=== PATIENT | female | born 1960 | race Caucasian/White ===

== ENCOUNTER 2019-02-26 18:26 | Emergency (ER) | payer OTHER ==
--- NOTE | 2019-02-26 19:15 | RADIOLOGY REPORT (SQ) ---
EXAM DESCRIPTION: ELBOW RIGHT OVER 2 VIEWS COMPLETED DATE/TIME: 02/26/2019 7:07 pm REASON FOR STUDY: elbow pain s/p fall COMPARISON: None. NUMBER OF VIEWS: Four views. TECHNIQUE: AP, lateral, and both oblique radiographic images acquired of the right elbow. LIMITATIONS: None. FINDINGS: MINERALIZATION: Normal. BONES: Hairline nondisplaced radial head fracture suspected on the external oblique view marked with a klamath JOINT: Elbow joint effusion with elevated anterior fat pad. SOFT TISSUES: No soft tissue swelling. No foreign body. OTHER: No other significant finding. IMPRESSION: Hairline nondisplaced radial head fracture suspected on the external oblique view, marke d with a klamath. TECHNICAL DOCUMENTATION: JOB ID: [id number] [employer]- All Rights Reserved Reading location - IP/workstation name: [email or web address]
[2019-02-26] MEDS ORDERED: HYDROCODONE/ACETAMINOPHEN 5-325 MG (6 TAB/ER DISP) PO PRN (19:37)
--- NOTE | 2019-02-26 19:41 | ER Document Report ---
HPI - HPI Patient complains to provider of: Right elbow injury Time Seen by Provider: 02/26/19 19:30 Onset: This evening Onset/Duration: Sudden Quality of pain: Achy Pain Level: 4 Context: Patient states she was walking tripped and fell landing on her right elbow. Patient states she felt a crack in her elbow. Patient is right-hand dominant. Patient denies any other injuries after the fall. Associated Symptoms: Other - Right elbow injury Exacerbated by: Movement Relieved by: Denies Similar symptoms previously: No Recently seen / treated by doctor: No - ROS ROS below otherwise negative: Yes Systems Reviewed and Negative: Yes All other systems reviewed and negative - NEURO Neurology: DENIES: Headache, Weakness - CARDIOVASCULAR Cardiovascular: DENIES: Chest pain - GASTROINTESTINAL Gastrointestinal: DENIES: Nausea, Patient vomiting - REPRODUCTIVE Reproductive: DENIES: : - MUSCULOSKELETAL Musculoskeletal: REPORTS: Extremity pain - right elbow - DERM Skin Color: Normal Skin Problems: None Past Medical History - General Information source: Patient - Social History Smoking Status: Current Every Day Smoker Smoking Education Provided: Yes Frequency of alcohol use: None Drug Abuse: None Occupation: realtor Lives with: Alone Family History: Reviewed & Not Pertinent Patient has suicidal ideation: No Patient has homicidal ideation: No Pulmonary Medical History: Reports: Hx Bronchitis - hx of Neurological Medical History: Denies: Hx Cerebrovascular Accident, Hx Seizures Endocrine Medical History: Reports: Hx Hypothyroidism Renal/ Medical History: Denies: Hx Peritoneal Dialysis Musculoskeletal Medical History: Denies Hx Arthritis Past Surgical History: Reports: Other - Abscess - Immunizations Hx Diphtheria, Pertussis, Tetanus Vaccination: No Vertical Provider Document - CONSTITUTIONAL Agree With Documented VS: Yes Exam Limitations: No Limitations General Appearance: WD/WN, No Apparent Distress - INFECTION CONTROL TRAVEL OUTSIDE OF THE [place] IN LAST 30 DAYS: No - HEENT HEENT: Atraumatic, Normocephalic - NECK Neck: Normal Inspection - RESPIRATORY Respiratory: No Respiratory Distress - CARDIOVASCULAR Pulses: Normal: Radial - MUSCULOSKELETAL/EXTREMETIES Musculoskeletal/Extremeties: MAEW, Tender - Right elbow tenderness over radial head, no joint effusion. No obvious deformity. Patient with tenderness with range of motion. - NEURO Level of Consciousness: Awake, Alert, Appropriate Motor/Sensory: No Motor Deficit - DERM Integumentary: Warm, Dry, No Rash Course - Re-evaluation Re-evalutation: 02/26/19 Patient's radiology report reviewed. Patient with subtle fracture noted to the radial head of right arm. Good return precautions discussed with patient. Patient encouraged to follow-up with orthopedics for further management. Patient verbalized understanding is agreeable with this plan of care. - Vital Signs Vital signs: Temp Pulse Resp BP Pulse Ox 98.4 F 97 18 96/79 L 100 02/26/19 18:41 02/26/19 18:41 02/26/19 18:41 02/26/19 18:41 02/26/19 18:41 - Diagnostic Test Radiology reviewed: Image reviewed, Reports reviewed Procedures - Immobilization Right Elbow Pre-Proc Neuro Vasc Exam: Normal Immobilizer type: Long arm posterior, Sling Performed by: PCT Post-Proc Neuro Vasc Exam: Normal Alignment checked and good: Yes Discharge - Discharge Clinical Impression: Radial head fracture, closed Qualifiers: Encounter type: initial encounter Fracture alignment: nondisplaced Laterality: right Qualified Code(s): S52.124A - Nondisplaced fracture of head of right radius, initial encounter for closed fracture Condition: Stable Disposition: HOME, SELF-CARE Instructions: Ice & Elevation ([facility]), Radial Head Fracture ([facility]), Splint Precautions ([facility]) Additional Instructions: Return immediately for any new or worsening symptoms Followup with your primary care provider, call tomorrow to make a followup appointment Follow-up with orthopedics for further evaluation, call tomorrow for an appointment. Prescriptions: Naproxen [Naprosyn 250 Nmg Tablet] 1 tab PO BID #14 tablet Forms: Smoking Cessation Education Referrals: BRONSON THAPA FNP-C [Primary Care Provider] - Follow up as needed [facility] [Provider Group] - Follow up tomorrow
[2019-02-26 20:15] VITALS: BP 111/75
== END 2019-02-26 20:23 | disposition home or self-care (01) ==
LOC: ER 18:26
PROC: 2W38X1Z Immobilization of Right Upper Extremity using Splint (ICD-10-PCS; principal; 2019-02-26)
DX: S52.124A Nondisplaced fracture of head of right radius, initial encounter for closed fracture (principal); M25.521 Pain in right elbow; W19.XXXA Unspecified fall, initial encounter; F17.200 Nicotine dependence, unspecified, uncomplicated
CPT/HCPCS: 99283

== ENCOUNTER → 2019-02-26 | Outpatient (CLI) | payer OTHER ==
--- NOTE | 2019-02-27 13:00 | XCELERA REPORT ---
[address] [address] Lower Extremity Arterial Evaluation Name: LUH TORRES Age: 58 yrs Gender: Female : 1960 Patient Status: Outpatient Patient Location: [facility] Study Date: 02/26/2019 02:27 PM Procedure: A color flow and duplex scan of the lower extremity arteries was performed bilaterally with velocity and waveform anaylsis. Ankle brachial indicies performed. Reason For Study: PAIN Ordering Physician: BRONSON THAPA Performed By: Prosper Mcmanus Measurements and Calculations Right Left AGRICULTURAL RESEARCH TECHNICIAN PSV 59.7 55.3 cm/sec Prox PFA PSV -40.7 -29.4 cm/sec Prox SFA PSV 48.8 55.0 cm/sec Mid SFA PSV -48.8 -37.3 cm/sec Dist SFA PSV -27.7 -33.6 cm/sec Prox Pop A PSV 25.3 24.4 cm/sec Dist CUCO PSV 26.7 18.7 cm/sec Dist PAPER MACHINE SUPERVISOR PSV 22.6 22.2 cm/sec Adonay Pedis PSV 20.6 -12.2 cm/sec Right Side Arterial Evaluation Low normal velocity and monophasic waveforms, spectral broadening noted from the Common Femoral artery to the infrageniculate vessels . Ankle Brachial index is 0.67. Left Side Arterial Evaluation Low normal velocity and monophasic waveforms, spectral broadening noted from the Common Femoral artery to the infrageniculate vessels . Ankle Brachial index is 0.73. Interpretation Summary Severe hemodynamically significant lesions in the bilateral lower extremities, on duplex imaging, at rest. Findings are indicative of proximal or inflow compromise. The STACY's indicate moderately severe disease. : BRONSON THAPA > Alli Dong
== END ==
LOC: SP 13:26
PROVIDERS: ATTEND Nurse Practitioner Family
DX: M79.605 Pain in left leg (principal); M79.604 Pain in right leg
CPT/HCPCS: 93925

== ENCOUNTER → 2019-11-01 | Outpatient (CLI) | payer OTHER ==
--- NOTE | 2019-11-02 21:45 | RADIOLOGY REPORT (SQ) ---
EXAM DESCRIPTION: MRI RT UPPER JOINT WITHOUT COMPLETED DATE/TIME: 11/01/2019 12:47 pm REASON FOR STUDY: M75.51 BURSITIS OF RIGHT SHOULDER M75.51 BURSITIS OF RIGHT SHOULDER COMPARISON: None. TECHNIQUE: Right shoulder images acquired and stored on PACS. Multiplanar imaging to include fat sen sitive sequences such as T1, water sensitive sequences such as FST2/STIR, cartilage sensitive sequenc es such as FSPD/gradient-echo sequences. LIMITATIONS: None. FINDINGS: BONE MARROW AND CORTEX: No worrisome bone lesions or marrow replacement. No occult fractur es. JOINT OR BURSAL EFFUSION: No significant joint or bursal fluid. No suggestion of loose bodies. GLENO-HUMERAL ARTICULATION: Normal articulation. No subluxation. No cystic change. No osteophytes or cartilage loss. ACROMION AND AC JOINT: Mild AC arthropathy without bulky overgrowth. Preserved subacromial space. ROTATOR CUFF AND INTERVAL: Mild bursal surface fraying generally. Tendinosis. Partial articular and bursal surface tears along the anterior supraspinatus insertion may be focally relatively high-grade . No full-thickness gap in the cuff, however. No cuff muscle atrophy. No rotator interval tear. No rotator interval thickening to suggest adhesive capsulitis. LABRUM AND BICEPS LABRAL COMPLEX: Suspect subtle type 2 labral tear, irregularity along the undersu rface of the anchor. The biceps tendon looks normal. REMAINDER OF LABRUM AND IGHL : Generally intact. PERIARTICULAR AND ADJACENT SOFT TISSUES: No masses or abnormal nodes. OTHER: No other significant finding. IMPRESSION: 1. Cuff disease. Includes partial-thickness tears particularly along anterior supraspinatus insertio n. No full-thickness gap in the cuff. 2. Superior labral tear. Biceps tendon intact. TECHNICAL DOCUMENTATION: JOB ID: [id number] [email or web address]- All Rights Reserved Reading location - IP/workstation name: [email or web address]
== END ==
LOC: RAD 12:00
PROVIDERS: ATTEND Orthopaedic Surgery
DX: M75.51 Bursitis of right shoulder (principal)